=== PATIENT | male | born 1970 | race Caucasian/White ===

== ENCOUNTER 2017-06-14 22:24 | Emergency (ER) | payer OTHER ==
[~2017-06-14] VITALS: Ht 185.4 cm; Wt 101.6 kg
[2017-06-14 22:55] LABS: MCH 32.5 PG (29.0-34.0); MCHC 34.4 G/DL (30.0-36.0); MCV 94.3 FL (86-99); MEAN PLAT.VOLUME 9.7 uM^3 (9.0-12.4); PLATELET COUNT 193 K/uL (156-360); RBC DIS.WIDTH-CV 14.6 % (11.8-14.6); RBC DIS.WIDTH-SD 51.1 % (39-53)
[2017-06-14 23:09] LABS: CHLORIDE 108 mEq/L (99-109); POTASSIUM 3.8 mEq/L (3.7-5.4); SODIUM 141 mEq/L (136-147)
[2017-06-14 23:11] LABS: GLUCOSE 86 mg/dL (70-99)
[2017-06-14 23:12] LABS: ANION GAP 9 MEQ/L (2-14)
[2017-06-14 23:15] LABS: GFR ESTIMATE (CALCULATED) > 59 mL/min/; UREA NITROGEN (BUN) 8 mg/dL (9-23)
[2017-06-15] MEDS ORDERED: SUDAFED 12-HOU120 MG PO (00:54)
[2017-06-15] MEDS ORDERED: PROVENTIL HFA6.7 GM IH (00:54)
[2017-06-15] MEDS ORDERED: AUGMENTIN875 MG PO (00:54)
[2017-06-15 02:41] VITALS: BP 148/99
== END 2017-06-15 01:22 | disposition home or self-care (01) ==
LOC: EXP 22:24 → EME 22:24 → EXP 06-15 01:22
DX: J01.90 Acute sinusitis, unspecified (principal); F17.200 Nicotine dependence, unspecified, uncomplicated; Z71.6 Tobacco abuse counseling
CPT/HCPCS: 71020; 80048; 85027; 99281; 99284

== ENCOUNTER 2017-06-25 20:07 | Emergency (ER) | payer OTHER ==
[~2017-06-25] VITALS: Ht 185.4 cm; Wt 100.6 kg
[~2017-06-25 20:07] MED LIST: AUGMENTIN875 MG PO; PROVENTIL HFA6.7 GM IH; SUDAFED 12-HOU120 MG PO
[2017-06-25 20:48] LABS: HEMATOCRIT 50.9 % (38.0-50.0); MCH 31.9 PG (29.0-34.0); MCV 93.9 FL (86-99); MEAN PLAT.VOLUME 9.6 uM^3 (9.0-12.4); PLATELET COUNT 209 K/uL (156-360); RBC DIS.WIDTH-CV 14.6 % (11.8-14.6); RBC DIS.WIDTH-SD 50.6 % (39-53); RED BLOOD COUNT 5.42 M/uL (4.00-5.50); WHITE BLOOD COUNT 6.6 K/uL (4.1-10.2)
[2017-06-25 21:00] LABS: CHLORIDE 106 mEq/L (99-109); POTASSIUM 3.8 mEq/L (3.7-5.4); SODIUM 140 mEq/L (136-147)
[2017-06-25 21:02] LABS: GLUCOSE 80 mg/dL (70-99)
[2017-06-25 21:04] LABS: ANION GAP 12 MEQ/L (2-14)
[2017-06-25 21:05] LABS: SERUM ETHYL ALCOHOL 286 mg/dL
[2017-06-25 21:06] LABS: GFR ESTIMATE (CALCULATED) > 59 mL/min/
[2017-06-25 21:08] LABS: UREA NITROGEN (BUN) 7 mg/dL (9-23)
[2017-06-25 21:09] LABS: SALICYLATE < 5.0 MG/DL (15-30)
[2017-06-25 22:42] LABS: AMPHETAMINE NEGATIVE (500 ng/mL); BARBITURATES NEGATIVE (200 ng/mL); BENZODIAZEPINES NEGATIVE (150 ng/mL); COCAINE NEGATIVE (150 ng/mL); INTERNAL CONTROLS VALID? YES; METHADONE NEGATIVE (200 ng/mL); METHAMPHETAMINE NEGATIVE (500 ng/mL); OPIATES (MORPHINE) NEGATIVE (100 ng/mL); OXYCODONE NEGATIVE (100 ng/mL); PHENCYCLIDINE NEGATIVE (25 ng/mL); PROPOXYPHENE NEGATIVE (300 ng/mL); THC CANNABINOIDS NEGATIVE (50 ng/mL); TRICYCLIC ANTIDEPRESSANTS NEGATIVE (300 ng/mL)
[2017-06-26 05:53] VITALS: BP 118/90
== END 2017-06-26 05:54 | disposition home or self-care (01) ==
LOC: EME 20:07
PROVIDERS: Emergency Medicine
DX: F10.24 Alcohol dependence with alcohol-induced mood disorder (principal); R45.851 Suicidal ideations; Y90.8 Blood alcohol level of 240 mg/100 ml or more; F17.200 Nicotine dependence, unspecified, uncomplicated
CPT/HCPCS: 80048; 85027; 90839; 99281; 99285; G0480